=== PATIENT | female | born 1950 | race Caucasian/White ===

== ENCOUNTER 2016-10-11 14:36 | Observation (INO) | payer MEDICARE, BC ==
[~2016-10-11] VITALS: Ht 157.5 cm; Wt 70.3 kg
--- NOTE | ~2016-10-11 | EC ---
PATIENT:PAKO SULLIVAN DATE OF SERVICE: 10/11/16 SEX: F MEDICAL RECORD: [id number] DATE OF : [birth year] LOCATION:[id number] AGE OF PATIENT: 65 ADMISSION DATE: 10/11/16 REFERRING PHYSICIAN: INTERPRETING PHYSICIAN: LEDA ROSENBAUM MD ECHOCARDIOGRAM REPORT ECHO CHARGES 4 ECHO COMPLETE CLINICAL DIAGNOSIS: ARRHYTHMIA/TIA ECHOCARDIOGRAPHIC MEASUREMENTS (adult normal given) AC root (d.<3.7cm) 3.1 LV Septum d (<1.2 cm> 1.5 Valve Excursion 1.9 LV Septum (systole) 1.7 Left Atria (s.<4.0cm> 3.5 LVPW d(<1.2cm) 1.4 RV (d.<2.3cm) 4.0 LVPW (sytole) 1.5 LV diastole(<5.6CM) 3.6 MV E-F(>70mm/sec) LV systole 2.2 LVOT Diameter 1.9 MV exc.(>10mm) 1.2 Est.ejection fraction (50-75%) Pericardial Effusion N DOPPLER: LVIT A 66.0 E 72.0 LA RVSP 25 LVOT 99 AOP1/2T Asc. Ao 151 RVOT 60 RA PA 70 AV Gradient Peak 9.10 AV Mean 4.93 AV Area 1.9 MV Gradient Peak 3.17 MV Mean 0.96 MV Area COMMENTS: Manager Application Development: Daryl PERRY Data Lead:Faheem Huerta TAPE# PACS DATE OF SERVICE: 10/12/2016 ECHOCARDIOGRAM FINDINGS: 1. Left ventricular chamber size is within normal limits. Left ventricular systolic function is normal. Overall ejection fraction estimated at 55%. 2. Left atrium is within normal limits at 3.5 cm. Right atrium and right ventricular chamber sizes are mildly dilated. 3. Valvular structures have normal structure and motion. ECHOCARDIOGRAM REPORT [id number] PAKO SULLIVAN 4. Doppler interrogation reveals mild aortic insufficiency, mild mitral regurgitation, mild tricuspid regurgitation. No other valvular insufficiency or stenosis. Pulmonary systolic pressure is normal estimated at 25 mmHg. 5. No evidence of left ventricular thrombus or left atrial thrombus, evidence of pericardial effusion. TRANSINT:[id number] Voice Confirmation ID: [id number] DOCUMENT ID: [id number] LEDA ROSENBAUM MD CC: [id number] DICTATION DATE: 10/12/16 1503 SENIOR PLANNING MANAGER: 10/12/16 2328 ADM IN [facility] [address] [id number]
[2016-10-11 15:04] LABS: APPEARANCE CLEAR (CLEAR); BILIRUBIN NEGATIVE (NEGATIVE); COLOR YELLOW (YELLOW); GLUCOSE NEGATIVE (NEGATIVE); KETONE NEGATIVE (NEGATIVE); LEUKOCYTE ESTERASE TRACE (NEGATIVE); NITRITE NEGATIVE (NEGATIVE); PROTEIN NEGATIVE (NEGATIVE); SPECIFIC GRAVITY 1.015 (1.005-1.020); UROBILINOGEN NORMAL (NORMAL)
[2016-10-11 15:06] LABS: BACTERIA FEW /hpf (NONE SEEN); EPITHELIAL CELLS 0-5 /hpf (0-5); HYALINE CAST OCC /lpf (NONE SEEN); RED CELLS - URINE 0-5 /hpf (0-5); WHITE CELLS - URINE 0-5 /hpf (0-5)
[2016-10-11 15:21] LABS: BASOPHILS 0.4 % (0-2); EOSINOPHILS 0.5 % (0-7); HEMATOCRIT 35.7 % (36.0-48.0); IMMATURE GRANULOCYTES 0.1 % (0-5); LYMPHOCYTES 27.1 % (15-50); MCH 29.3 pg (26.0-34.0); MCHC 33.6 g/dL (31.0-37.0); MCV 87.1 fL (80.0-100.0); MEAN PLATELET VOLUME 9.8 fL (7.4-10.4); MONOCYTES 8.7 % (2-11); NEUTROPHILS 63.2 % (40-80); PLATELET COUNT 220 10x3/uL (130-400); RDW 12.5 % (11.5-14.5); WBC 7.9 10x3/uL (4.8-10.8)
[2016-10-11 15:53] LABS: ALBUMIN 3.8 g/dL (3.4-5.0); ANION GAP 14.6 mmol/L (8-16); BILIRUBIN - TOTAL 0.42 mg/dL (0.2-1.3); CALCIUM 9.2 mg/dL (8.5-10.1); CARBON DIOXIDE 25.7 mmol/L (21.0-32.0); CREATININE - SERUM 0.9 mg/dL (0.6-1.3); POTASSIUM - SERUM 3.3 mmol/L (3.5-5.1)
[2016-10-11 20:00] VITALS: BP 100/50
[2016-10-11] MEDS ORDERED: ZESTRIL10 MG PO (20:13)
[2016-10-11 23:47] VITALS: BP 94/47
[2016-10-12 00:13] VITALS: BP 100/50; BMI 28.4
--- NOTE | 2016-10-12 02:29 | NUR ---
TELEMETRY SINUS KIET 52
[2016-10-12 04:00] VITALS: BP 104/48
[2016-10-12 04:46] LABS: BASOPHILS 0.3 % (0-2); EOSINOPHILS 1.3 % (0-7); HEMATOCRIT 34.2 % (36.0-48.0); HEMOGLOBIN 11.7 g/dL (12-16); IMMATURE GRANULOCYTES 0.1 % (0-5); LYMPHOCYTES 31.1 % (15-50); MCH 29.6 pg (26.0-34.0); MCHC 34.2 g/dL (31.0-37.0); MCV 86.6 fL (80.0-100.0); MEAN PLATELET VOLUME 10.3 fL (7.4-10.4); MONOCYTES 10.6 % (2-11); NEUTROPHILS 56.6 % (40-80); PLATELET COUNT 220 10x3/uL (130-400); RBC 3.95 10x6/uL (4.00-5.40); RDW 12.3 % (11.5-14.5); WBC 7.6 10x3/uL (4.8-10.8)
[2016-10-12 04:54] LABS: ALBUMIN 3.4 g/dL (3.4-5.0); ALKALINE PHOSPHATASE 73 U/L (46-116); ALT (SGPT) 21 U/L (10-68); CALC OSMOLALITY 270 mosm/kg (275-300); CALCIUM 8.7 mg/dL (8.5-10.1); CARBON DIOXIDE 26.1 mmol/L (21.0-32.0); CHLORIDE - SERUM 100 mmol/L (98-107); CREATININE - SERUM 0.8 mg/dL (0.6-1.3); GLUCOSE 110 mg/dL (74-106); POTASSIUM - SERUM 3.5 mmol/L (3.5-5.1); PROTEIN - SERUM 6.7 g/dL (6.4-8.2); SODIUM 134 mmol/L (136-145); UREA NITROGEN 17 mg/dL (7-18); eGFR NON AFRICAN AMERICAN 76 mL/min (90-120)
--- NOTE | 2016-10-12 08:00 | NUR ---
HAVING SHARP SHOOTING PAIN TO THE RIGHT SIDE OF HER HEAD, NEURO CHECK COMPLETE, RIGHT PUPIL SLUGGISH COMPAIRED TO LEFT PUPIL, NO SLURRED SPEACH OR WEAKNESS, THE SHARP HEADACHE IS A NEW SYMPTOM. BED LOWEST POSITION, CALL LIGHT IN REACH, WILL CONTINUE TO MONITOR
[2016-10-12 08:15] VITALS: BP 107/57
--- NOTE | 2016-10-12 09:05 | NUR ---
Patient Name: PAKO SULLIVAN Admission Status: ER Accout number: [id number] Admission Date: 10-11-2016 : 1950 Admission Diagnosis: Attending: LI Current LOS: 1 Anticipated DC Date: 10-13-2016 Planned Disposition: Home Primary Insurance: MEDICARE A & B Discharge Planning Comments: CM MET WITH PATIENT REGARDING D/C NEEDS AND PLANS. PATIENT STATED SHE LIVES WITH HER SPOUSE (SHARI) AND THEIR HOME IS SAFE. PATIENT HAS 1 STEP W/O RAILING TO ENTER HOME AND NO STAIRS INSIDE. PATIENT IS INDEPENDENT WITH HER CARE AND HAS NO DME AT HOME. PATIENTS PCP IS DR. GOODE AND PHARMACY IS [facility] IN [place]. PATIENT HAS NOT HAD HOME HEALTH AND SHE AND FAMILY DOES NOT WANT IT AT THIS TIME. CM WILL CONTINUE TO FOLLOW PATIENT WITH D/C NEEDS AND PLANS. PCP DR[facility] - [phone] SHARI (SPOUSE) [phone] Ingot Stripper: Tabatha Odell Is the patient Alert and Oriented? Yes 0 * How many steps to enter\exit or inside your home? 1 0 * PCP DR. GOODE 0 * [facility] [place] 0 * Preadmission Environment Home with Family 0 * ADLs Independent 0 * Equipment None 0 * List name and contact numbers for known caregivers / representatives who currently or will assist patient after discharge: SHARI (SPOUSE) [phone] * Community resources currently utilized None 0 * Additional services required to return to the preadmission environment? Yes 0 * Can the patient safely return to the preadmission environment? Yes 0 * Has this patient been hospitalized within the prior 30 days at any hospital? No 0 Grand Total: 0
[2016-10-12 12:28] VITALS: BP 102/51
[2016-10-12 13:05] VITALS: Ht 157.5 cm; Wt 70.3 kg
[2016-10-12 14:11] LABS: CHOL - HDL RATIO 4.9 ratio (2.3-4.1); LDL-HDL RATIO 3.4 ratio (1.5-3.5)
[2016-10-12 20:00] VITALS: BP 124/58
[2016-10-13] VITALS: BP 122/60
[2016-10-13 04:00] VITALS: BP 125/63
[2016-10-13 05:34] LABS: BASOPHILS 0.3 % (0-2); EOSINOPHILS 0.9 % (0-7); HEMOGLOBIN 11.7 g/dL (12-16); IMMATURE GRANULOCYTES 0.1 % (0-5); LYMPHOCYTES 27.2 % (15-50); MCH 29.5 pg (26.0-34.0); MCHC 34.4 g/dL (31.0-37.0); MCV 85.9 fL (80.0-100.0); MEAN PLATELET VOLUME 10.3 fL (7.4-10.4); MONOCYTES 9.8 % (2-11); NEUTROPHILS 61.7 % (40-80); PLATELET COUNT 230 10x3/uL (130-400); RBC 3.96 10x6/uL (4.00-5.40); RDW 12.3 % (11.5-14.5); WBC 6.9 10x3/uL (4.8-10.8)
--- NOTE | 2016-10-13 05:36 | NUR ---
PATIENT HAS BEEN SLEEPING IN BED, REPORTED THAT SHE REFUSED A NEW PIV. NO COMPLAINTS NOTED. STATED SHE SHOULD BE GOING HOME TODAY. BED IN LOWEST LOCKED POSITION, HOB ELEVATED, x2 BEDRAILS UP, CALL LIGHT WITHING REACH.
[2016-10-13 05:44] LABS: ALBUMIN 3.3 g/dL (3.4-5.0); ALKALINE PHOSPHATASE 72 U/L (46-116); ALT (SGPT) 20 U/L (10-68); CALC OSMOLALITY 275 mosm/kg (275-300); CALCIUM 8.2 mg/dL (8.5-10.1); CARBON DIOXIDE 26.3 mmol/L (21.0-32.0); CHLORIDE - SERUM 102 mmol/L (98-107); CREATININE - SERUM 0.8 mg/dL (0.6-1.3); GLUCOSE 113 mg/dL (74-106); POTASSIUM - SERUM 3.6 mmol/L (3.5-5.1); PROTEIN - SERUM 6.6 g/dL (6.4-8.2); SODIUM 137 mmol/L (136-145); UREA NITROGEN 16 mg/dL (7-18); eGFR NON AFRICAN AMERICAN 76 mL/min (90-120)
--- NOTE | 2016-10-13 07:40 | NUR ---
ASSESSMENT PER FLOW SHEET.PT WITHOUT DISTRESS.CALL LIGHT IN REACH
[2016-10-13 07:49] VITALS: BP 136/71
[2016-10-13 12:18] VITALS: BP 111/55
--- NOTE | 2016-10-13 12:31 | NUR ---
REMAINS WITHOUT NEEDS.WANTING TO GO HOME TODAY.FAMILY AT SIDE.
[2016-10-13] MEDS ORDERED: ASPIRIN81 MG PO (13:37)
--- NOTE | 2016-10-13 14:47 | NUR ---
REMAINS WITHOUT DISTRESS.READY FOR DC HOME.
--- NOTE | 2016-10-13 17:01 | NUR ---
IV DCD WITH CATH INTACT.DISCHARGE INSTRUCTIONS,STATES UNDERTANDING.LEFT UNIT VIA WHEELCHAIR FOR TRANSPORT HOME.
== END 2016-10-13 17:02 | disposition home or self-care (01) ==
LOC: D.ER 14:36 → D.MS 16:59 → D.SDCHOLD 17:09 → OBSVTIME 17:09 → D.MS 10-13 17:02
PROVIDERS: Emergency Medicine; ADMIT Family Medicine
DX: G45.9 Transient cerebral ischemic attack, unspecified (principal); Z86.73 Personal history of transient ischemic attack (TIA), and cerebral infarction without residual deficits; I10 Essential (primary) hypertension; K21.9 Gastro-esophageal reflux disease without esophagitis